=== PATIENT | female | born 1950 | race Caucasian/White ===

== ENCOUNTER → 2016-07-21 | Outpatient (CLI) | payer MEDICARE | LOC: M WUC 13:56 | PROVIDERS: ATTEND Internal Medicine Endocrinology, Diabetes & Metabolism | DX: E55.9 Vitamin D deficiency, unspecified (principal); E89.0 Postprocedural hypothyroidism ==

== ENCOUNTER → 2016-09-26 | Outpatient (CLI) | payer MEDICARE ==
--- NOTE | 2016-09-26 16:29 | REP ---
Chest x-ray: Two views. History: There is edema and swelling of the feet. . Comparison study: July 12 2012 . Findings: The lungs are well inflated and free of infiltrate. The pleural angles are sharp. The heart size is normal. Pulmonary vasculature is not increased. No significant bony abnormality is seen. Impression: Negative chest x-ray. Signed by Desmond Mata MD 09/26/2016 04:22 P
[2016-09-26 20:08] LABS: ALBUMIN 2.2 GM/DL (3.2-5.2); ALKALINE PHOSPHATASE 134 U/L (45-117); ALT/SGPT 22 U/L (12-78); ANION GAP 7 MEQ/L (8-16); AST/SGOT 20 U/L (15-37); BILIRUBIN,TOTAL 0.3 MG/DL (0.2-1.0); BLOOD UREA NITROGEN 12 MG/DL (7-18); CALCIUM LEVEL 8.3 MG/DL (8.8-10.2); CARBON DIOXIDE LEVEL 31 MEQ/L (21-32); CHLORIDE LEVEL 104 MEQ/L (98-107); CREATININE FOR GFR 0.67 MG/DL (0.55-1.02); GLOMERULAR FILTRATION RATE > 60.0 (>45); GLUCOSE, FASTING 94 MG/DL (80-110); POTASSIUM SERUM 3.5 MEQ/L (3.5-5.1); SODIUM LEVEL 142 MEQ/L (136-145); TOTAL PROTEIN 6.6 GM/DL (6.4-8.2)
[2016-09-26 20:09] LABS: BASO % 0.3 % (0.0-1.0); EOS # 0.1 K/mm3 (0.0-0.50); EOS % 0.6 % (0.0-3.0); LARGE UNSTAINED CELL # 0.2 K/mm3 (0.0-0.4); LARGE UNSTAINED CELL % 1.2 % (0.0-4.0); LYMPH # 1.9 K/mm3 (1.5-4.5); LYMPH % 13.6 % (24.0-44.0); MEAN CORPUSCULAR HEMOGLOBIN 29.7 pg (27.0-33.0); MEAN CORPUSCULAR HGB CONC 30.9 g/dl (32.0-36.5); MEAN CORPUSCULAR VOLUME 96.2 fl (80.0-96.0); MONO # 1.1 K/mm3 (0.0-0.8); MONO % 8.6 % (0.0-5.0); NEUTROPHILS # 9.5 K/mm3 (1.8-7.7); NEUTROPHILS % 75.7 % (36.0-66.0); PLATELET COUNT, AUTOMATED 794 k/mm3 (150-450); RED CELL DISTRIBUTION WIDTH 13.9 % (11.5-14.5); WHITE BLOOD COUNT 12.6 K/mm3 (4.0-10.0)
== END ==
LOC: M WUC 16:00
PROVIDERS: ATTEND Physician Assistant
DX: R60.0 Localized edema (principal)

== ENCOUNTER → 2016-10-22 | Outpatient (CLI) | payer MEDICARE | LOC: M LAB 10-21 18:45 | PROVIDERS: ATTEND Internal Medicine Gastroenterology | DX: K51.30 Ulcerative (chronic) rectosigmoiditis without complications (principal) ==

== ENCOUNTER → 2016-12-31 | Outpatient (CLI) | payer MEDICARE ==
[2016-12-31 17:56] LABS: BASO # 0.1 10^3/uL (0.0-0.2); BASO % 0.7 % (0.0-1.0); EOS # 0.1 10^3/uL (0.0-0.50); IMMATURE GRANULOCYTE % 0.4 % (0-0); LYMPH # 2.7 10^3/uL (1.5-4.5); LYMPH % 30.4 % (24.0-44.0); MEAN CORPUSCULAR HGB CONC 31.6 g/dl (32.0-36.5); MEAN CORPUSCULAR VOLUME 104.6 fl (80.0-96.0); MONO # 0.9 10^3/uL (0.0-0.8); MONO % 10.2 % (0.0-5.0); NEUTROPHILS # 5.2 10^3/uL (1.8-7.7); NEUTROPHILS % 57.3 % (36.0-66.0); PLATELET COUNT, AUTOMATED 406 10^3/uL (150-450); RED CELL DISTRIBUTION WIDTH 13.8 % (11.5-14.5)
[2016-12-31 18:12] LABS: ALBUMIN 3.4 GM/DL (3.2-5.2); ALBUMIN/GLOBULIN RATIO 0.92 (1.00-1.93); BILIRUBIN,TOTAL 0.2 MG/DL (0.2-1.0); CALCIUM LEVEL 9.1 MG/DL (8.8-10.2); CREATININE FOR GFR 1.2 MG/DL (0.55-1.02); GLOMERULAR FILTRATION RATE 47.7 (>45); POTASSIUM SERUM 3.8 MEQ/L (3.5-5.1); TOTAL PROTEIN 7.1 GM/DL (6.4-8.2)
== END ==
LOC: M WUC 11:37
PROVIDERS: ATTEND Internal Medicine Gastroenterology
DX: K51.30 Ulcerative (chronic) rectosigmoiditis without complications (principal)

== ENCOUNTER → 2017-01-05 | Outpatient (CLI) | payer MEDICARE ==
[2017-01-05 16:51] LABS: BASO # 0.1 10^3/uL (0.0-0.2); BASO % 0.9 % (0.0-1.0); EOS # 0.1 10^3/uL (0.0-0.50); EOS % 1.5 % (0.0-3.0); IMMATURE GRANULOCYTE % 0.2 % (0-0); LYMPH # 2.7 10^3/uL (1.5-4.5); LYMPH % 32.6 % (24.0-44.0); MEAN CORPUSCULAR HEMOGLOBIN 32.6 pg (27.0-33.0); MEAN CORPUSCULAR HGB CONC 31.7 g/dl (32.0-36.5); MEAN CORPUSCULAR VOLUME 102.9 fl (80.0-96.0); MONO % 11.6 % (0.0-5.0); NEUTROPHILS # 4.4 10^3/uL (1.8-7.7); NEUTROPHILS % 53.2 % (36.0-66.0); PLATELET COUNT, AUTOMATED 396 10^3/uL (150-450); RED CELL DISTRIBUTION WIDTH 13.2 % (11.5-14.5); WHITE BLOOD COUNT 8.2 10^3/uL (4.0-10.0)
[2017-01-05 17:58] LABS: PERCENT SATURATION 10.8 % (13.2-45.0)
[2017-01-05 18:05] LABS: FOLATE 20.7 NG/ML
== END ==
LOC: M WUC 11:03
PROVIDERS: ATTEND Internal Medicine Gastroenterology
DX: D64.9 Anemia, unspecified (principal)

== ENCOUNTER → 2017-07-31 | Outpatient (CLI) | payer MEDICARE ==
[2017-07-31 20:04] LABS: CALCIUM LEVEL 9.4 MG/DL (8.8-10.2)
[2017-07-31 20:04] LABS: THYROID STIMULATING HORMONE 0.258 uIU/ML (0.358-3.740)
[2017-08-01 10:57] LABS: TOTAL 25(OH) VITAMIN D 40.9 NG/ML (30.0-100.0)
== END ==
LOC: M WUC 16:59
DX: E89.0 Postprocedural hypothyroidism (principal); E55.9 Vitamin D deficiency, unspecified
CPT/HCPCS: 82310

== ENCOUNTER → 2017-11-23 | Outpatient (CLI) | payer MEDICARE ==
[2017-11-23 18:29] LABS: ALBUMIN 3.5 GM/DL (3.2-5.2); ALBUMIN/GLOBULIN RATIO 0.81 (1.00-1.93); ALKALINE PHOSPHATASE 338 U/L (45-117); ALT/SGPT 35 U/L (12-78); ANION GAP 8 MEQ/L (8-16); AST/SGOT 40 U/L (7-37); BILIRUBIN,TOTAL 0.3 MG/DL (0.2-1.0); BLOOD UREA NITROGEN 15 MG/DL (7-18); C REACTIVE PROTEIN QUANTITATIV 2.07 MG/DL (0.00-0.30); CALCIUM LEVEL 10.2 MG/DL (8.8-10.2); CARBON DIOXIDE LEVEL 31 MEQ/L (21-32); CHLORIDE LEVEL 104 MEQ/L (98-107); CREATININE FOR GFR 0.75 MG/DL (0.55-1.30); GLOMERULAR FILTRATION RATE > 60.0 (>45); GLUCOSE, FASTING 83 MG/DL (70-100); IRON (FE) 48 UG/DL (50-170); PERCENT SATURATION 15.3 % (13.2-45.0); POTASSIUM SERUM 3.9 MEQ/L (3.5-5.1); SODIUM LEVEL 143 MEQ/L (136-145); TOTAL IRON BINDING CAPACITY 314 UG/DL (250-450); TOTAL PROTEIN 7.8 GM/DL (6.4-8.2)
[2017-11-23 20:17] LABS: BASO # 0.1 10^3/uL (0.0-0.2); BASO % 0.9 % (0.0-1.0); EOS # 0.3 10^3/uL (0.0-0.50); EOS % 3.6 % (0.0-3.0); HEMATOCRIT 38.5 % (36.0-47.0); HEMOGLOBIN 12.2 g/dl (12.0-15.5); IMMATURE GRANULOCYTE % 0.4 % (0-3.0); LYMPH # 2.5 10^3/uL (1.5-4.5); LYMPH % 32.7 % (24.0-44.0); MEAN CORPUSCULAR HEMOGLOBIN 31.6 pg (27.0-33.0); MEAN CORPUSCULAR HGB CONC 31.7 g/dl (32.0-36.5); MEAN CORPUSCULAR VOLUME 99.7 fl (80.0-96.0); MONO # 0.8 10^3/uL (0.0-0.8); MONO % 10.3 % (0.0-5.0); NEUTROPHILS % 52.1 % (36.0-66.0); PLATELET COUNT, AUTOMATED 310 10^3/uL (150-450); RED BLOOD COUNT 3.86 10^6/uL (4.00-5.40); RED CELL DISTRIBUTION WIDTH 13.2 % (11.5-14.5); WHITE BLOOD COUNT 7.6 10^3/uL (4.0-10.0)
== END ==
LOC: M WUC 13:29
DX: K51.30 Ulcerative (chronic) rectosigmoiditis without complications (principal)
CPT/HCPCS: 83550

== ENCOUNTER → 2018-08-14 | Outpatient (CLI) | payer MEDICARE ==
[2018-08-14 20:23] LABS: THYROID STIMULATING HORMONE 0.288 uIU/ML (0.358-3.740)
[2018-08-14 20:25] LABS: TOTAL 25(OH) VITAMIN D 34.4 NG/ML (30.0-100.0)
== END ==
LOC: M WUC 15:44
PROVIDERS: ATTEND Internal Medicine Endocrinology, Diabetes & Metabolism
DX: E89.0 Postprocedural hypothyroidism (principal); E55.9 Vitamin D deficiency, unspecified

== ENCOUNTER → 2018-10-17 | Outpatient (CLI) | payer MEDICARE ==
[2018-10-17 17:09] LABS: FREE T4 1.01 NG/DL (0.76-1.46); THYROID STIMULATING HORMONE 0.39 uIU/ML (0.358-3.740)
== END ==
LOC: M WUC 11:12
PROVIDERS: ATTEND Nurse Practitioner Family
DX: E89.0 Postprocedural hypothyroidism (principal)

== ENCOUNTER → 2018-12-27 | Outpatient (CLI) | payer MEDICARE ==
[2018-12-27 13:07] LABS: CREATININE FOR GFR 1.08 MG/DL (0.55-1.30); GLOMERULAR FILTRATION RATE 53.5 (>45)
== END ==
LOC: M WUC 11:27
PROVIDERS: ATTEND Internal Medicine Gastroenterology
DX: K51.30 Ulcerative (chronic) rectosigmoiditis without complications (principal)

== ENCOUNTER → 2019-08-26 | Outpatient (CLI) | payer MEDICARE ==
[2019-08-26 18:08] LABS: BLOOD UREA NITROGEN 15 MG/DL (7-18); CALCIUM LEVEL 9.2 MG/DL (8.8-10.2); CARBON DIOXIDE LEVEL 29 MEQ/L (21-32); CHLORIDE LEVEL 103 MEQ/L (98-107); CREATININE FOR GFR 0.74 MG/DL (0.55-1.30); GLOMERULAR FILTRATION RATE > 60.0 (>39); GLUCOSE, FASTING 67 MG/DL (70-100); SODIUM LEVEL 138 MEQ/L (136-145); THYROID STIMULATING HORMONE 0.333 uIU/ML (0.358-3.740); TOTAL 25(OH) VITAMIN D 43.1 NG/ML (30.0-100.0)
== END ==
LOC: M WUC 11:37
PROVIDERS: ATTEND Nurse Practitioner Family
DX: E89.0 Postprocedural hypothyroidism (principal); E55.9 Vitamin D deficiency, unspecified; M85.89 Other specified disorders of bone density and structure, multiple sites

== ENCOUNTER → 2020-07-20 | Outpatient (CLI) | payer MEDICARE ==
[2020-07-20 16:41] LABS: ALBUMIN 3.3 GM/DL (3.2-5.2); ALT/SGPT 62 U/L (12-78); BILIRUBIN,DIRECT 0.2 MG/DL (0.0-0.2); BILIRUBIN,TOTAL 0.4 MG/DL (0.2-1.0); IRON (FE) 46 UG/DL (50-170); PERCENT SATURATION 14.1 % (13.2-45.0); TOTAL IRON BINDING CAPACITY 327 UG/DL (250-450); TOTAL PROTEIN 7.3 GM/DL (6.4-8.2)
[2020-07-20 16:49] LABS: HEPATITIS B SURFACE ANTIGEN NEGATIVE (NEGATIVE)
[2020-07-20 17:16] LABS: HEPATITIS B CORE ANTIBODY IGM NEGATIVE (NEGATIVE)
[2020-07-20 17:19] LABS: HEPATITIS A ANTIBODY IGM NEGATIVE (NEGATIVE)
== END ==
LOC: M WUC 11:56
PROVIDERS: ATTEND Internal Medicine Gastroenterology
DX: K51.30 Ulcerative (chronic) rectosigmoiditis without complications (principal)

== ENCOUNTER → 2020-08-07 | Outpatient (CLI) | payer MEDICARE ==
[2020-08-07 20:49] LABS: THYROID STIMULATING HORMONE 0.184 uIU/ML (0.358-3.740)
== END ==
LOC: M WUC 14:28
PROVIDERS: ATTEND Internal Medicine Endocrinology, Diabetes & Metabolism
DX: E89.0 Postprocedural hypothyroidism (principal); M85.89 Other specified disorders of bone density and structure, multiple sites

== ENCOUNTER → 2020-10-01 | Outpatient (CLI) | payer MEDICARE ==
[~2020-10-01] MED LIST: D31000TA2 PO; MESA1.2T PO; OYST1TAB PO; SIMV20TA22 PO; SYNT88TA2 PO
== END ==
LOC: M LABSMTC 10:51
PROVIDERS: ATTEND Anesthesiology
DX: Z01.818 Encounter for other preprocedural examination (principal); Z11.52 Encounter for screening for COVID-19

== ENCOUNTER 2020-10-06 08:46 | Day surgery (SDC) | payer MEDICARE ==
[~2020-10-06] VITALS: Ht 165.1 cm; Wt 65.2 kg
[~2020-10-06 08:46] MED LIST changes: +NS 1,000 ML IV ONE
[2020-10-06] MEDS ORDERED: propofoL 200 MG/20 ML VIAL As Ordered ONE ×2 (09:54→10:14)
[2020-10-06] MEDS ORDERED: LIDOCAINE 2% 100MG/5ML SDV (FOR ANES.) As Ordered ONE (09:54)
--- NOTE | 2020-10-06 10:44 | ROOR ---
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 Procedure: Pre-Anesthesia Assessment: - The heart rate, respiratory rate, oxygen saturations, blood pressure, adequacy of pulmonary ventilation, and response to care were monitored throughout the procedure. The Colonoscope was introduced through the anus and advanced to 10 cm into the ileum. The colonoscopy was performed without difficulty. The patient tolerated the procedure well. The quality of the bowel preparation was good. Findings: The perianal and digital rectal examinations were normal. The terminal ileum appeared normal. Three sessile polyps were found in the ascending colon and cecum. The polyps were 4 to 6 mm in size. These polyps were removed with a cold snare. Resection and retrieval were complete. Inflammation characterized by erythema and loss of vascularity was found in a continuous and circumferential pattern from the rectum to the ascending colon. This was mild in severity. Biopsies were taken with a cold forceps for histology. Scattered pseudopolyps were found in the entire colon. This was biopsied with a cold forceps for histology. Multiple small-mouthed diverticula were found in the sigmoid colon. Internal hemorrhoids were found during retroflexion. The hemorrhoids were small. The exam was otherwise without abnormality. Impression: - The examined portion of the ileum was normal. - Three 4 to 6 mm polyps (or pseudopolyps) in the ascending colon and in the cecum, removed with a cold snare. Resected and retrieved. - Mild Ulcerative pancolitis with numerous small and medium sized scattered pseudopolyps throughout the entire colon. Biopsied. - Diverticulosis in the sigmoid colon. - Internal hemorrhoids. - The examination was otherwise normal. Recommendation: - Continue present medications. - Telephone endoscopist for pathology results in 2 weeks. - Repeat colonoscopy in 1 year for surveillance. (numerous pseudopolyps/inflammatory polyps). Procedure Code(s): --- Professional --- 44566, Colonoscopy, flexible; with removal of tumor(s), polyp(s), or other lesion(s) by snare technique [id number], 59, Colonoscopy, flexible; with biopsy, single or multiple Diagnosis Code(s): --- Professional --- K57.30, Diverticulosis of large intestine without perforation or abscess without bleeding K51.40, Inflammatory polyps of colon without complications K51.00, Ulcerative (chronic) pancolitis without complications K63.5, Polyp of colon K64.8, Other hemorrhoids K51.50, Left sided colitis without complications Z86.010, Personal history of colonic polyps CPT copyright 2019 [employer]. All rights reserved. The codes documented in this report are preliminary and upon certified medical coder review may be revised to meet current compliance requirements. Anjel Tamayo MD Anjel Tamayo MD 10/06/2020 10:44:15 AM Electronically signed by Anjel Tamayo MD Number of Addenda: 0 Note Initiated On: 10/06/2020 10:04 AM Estimated Blood Loss: Estimated blood loss: none.
[2020-10-06 10:55] VITALS: BP 155/71
== END 2020-10-06 11:05 | disposition home or self-care (01) ==
LOC: M OPP 08:46
PROVIDERS: ATTEND Internal Medicine Gastroenterology
DX: Z12.11 Encounter for screening for malignant neoplasm of colon (principal); Z86.010 Personal history of colon polyps; K64.8 Other hemorrhoids; K57.30 Diverticulosis of large intestine without perforation or abscess without bleeding; K51.40 Inflammatory polyps of colon without complications; K51.00 Ulcerative (chronic) pancolitis without complications; K51.50 Left sided colitis without complications; Z79.899 Other long term (current) drug therapy

== ENCOUNTER → 2020-10-20 | Outpatient (CLI) | payer MEDICARE ==
[~2020-10-20] MED LIST changes: -NS 1,000 ML IV ONE
== END ==
LOC: M WUC 15:04
PROVIDERS: ATTEND Internal Medicine Endocrinology, Diabetes & Metabolism
DX: E89.0 Postprocedural hypothyroidism (principal)

== ENCOUNTER → 2021-07-23 | Outpatient (CLI) | payer MEDICARE ==
[~2021-07-23] MED LIST changes: -D31000TA2 PO; +VITA100093 PO
[2021-07-23 15:18] LABS: THYROID STIMULATING HORMONE 1.08 uIU/ML (0.358-3.740)
[2021-07-23 15:20] LABS: TOTAL 25(OH) VITAMIN D 49.4 NG/ML (30.0-100.0)
== END ==
LOC: M WUC 13:25
PROVIDERS: ATTEND Internal Medicine Endocrinology, Diabetes & Metabolism
DX: E89.0 Postprocedural hypothyroidism (principal); E55.9 Vitamin D deficiency, unspecified; Z79.899 Other long term (current) drug therapy

== ENCOUNTER → 2021-07-23 | Outpatient (CLI) | payer MEDICARE | LOC: M WHC 12:15 | PROVIDERS: ATTEND Internal Medicine Endocrinology, Diabetes & Metabolism | DX: M85.851 Other specified disorders of bone density and structure, right thigh (principal); M85.852 Other specified disorders of bone density and structure, left thigh; Z79.899 Other long term (current) drug therapy ==

== ENCOUNTER → 2021-11-11 | Outpatient (CLI) | payer MEDICARE | LOC: M LABSMTC 10:41 | PROVIDERS: ATTEND Anesthesiology | DX: Z01.818 Encounter for other preprocedural examination (principal); Z11.52 Encounter for screening for COVID-19 ==

== ENCOUNTER 2021-11-16 08:28 | Day surgery (SDC) | payer MEDICARE ==
[~2021-11-16] VITALS: Ht 162.6 cm; Wt 64.0 kg
[~2021-11-16 08:28] MED LIST changes: +NS 1,000 ML IV ONE
[2021-11-16] MEDS ORDERED: LIDOCAINE 2% 100MG/5ML SDV (FOR ANES.) As Ordered ONE (09:24)
[2021-11-16] MEDS ORDERED: propofoL 200 MG/20 ML VIAL As Ordered ONE ×2 (09:24→10:45)
[2021-11-16 11:26] VITALS: BP 138/88
== END 2021-11-16 11:28 | disposition home or self-care (01) ==
LOC: M OPP 08:28
PROVIDERS: ATTEND Internal Medicine Gastroenterology
DX: K51.00 Ulcerative (chronic) pancolitis without complications (principal); K51.40 Inflammatory polyps of colon without complications; D12.6 Benign neoplasm of colon, unspecified; E03.9 Hypothyroidism, unspecified; Z79.02 Long term (current) use of antithrombotics/antiplatelets; Z79.1 Long term (current) use of non-steroidal anti-inflammatories (NSAID); Z79.899 Other long term (current) drug therapy; Z87.891 Personal history of nicotine dependence; Z86.39 Personal history of other endocrine, nutritional and metabolic disease

== ENCOUNTER → 2023-08-28 | Outpatient (REF) | payer MEDICARE ==
[~2023-08-28] MED LIST changes: +ATOR1TAB21 PO; -NS 1,000 ML IV ONE; +SYNT75TA PO
== END ==
LOC: M LAB REF 17:23
PROVIDERS: ATTEND Internal Medicine
DX: R74.8 Abnormal levels of other serum enzymes (principal)

== ENCOUNTER 2023-08-31 08:02 | Day surgery (SDC) | payer MEDICARE ==
[~2023-08-31] VITALS: Ht 162.6 cm; Wt 69.9 kg
[~2023-08-31 08:02] MED LIST changes: +PHENYLEPHRINE 10% OPHTH SOL 5ML OS PRN
[2023-08-31] MEDS: OFLOXACIN 0.3 % (OCUFLOX) OPTH SOL 5ML OS ONE (08:30)
[2023-08-31] MEDS: LIDOCAINE 3.5 % 1ML OPHTH TOPICAL GEL OU ONE (08:30)
[2023-08-31] MEDS: PHENYLEPHRINE 2.5% OPHTH SOL 2ML OS SCH (08:41)
[2023-08-31] MEDS: TROPICAMIDE 1% OPHTH SOLN 15ML OS SCH (08:41)
[2023-08-31] MEDS: ATROPINE SULFATE 1% OPHTH SOLN 2ML BTL OS SCH (08:41)
[2023-08-31] MEDS ORDERED: fentaNYL 100 MCG/2 ML INJECTION As Ordered ONE (08:43)
[2023-08-31] MEDS ORDERED: MIDAZOLAM INJ 2MG/2ML VIAL As Ordered ONE (08:44)
[2023-08-31] MEDS: BSS IRRIG/VANCO(10MG)/TOBRA(5MG)/EPINEPH(1:1000-0.5CC)500ML BAG-ORONLY As Ordered ONE (09:09)
[2023-08-31] MEDS: LIDOCAINE 1% SDV 5ML VIAL As Ordered ONE (09:09)
[2023-08-31] MEDS: CEFUROXIME 1MG/0.1ML INTRACAMERAL INJ As Ordered ONE (09:11)
[2023-08-31 09:38] VITALS: BP 162/71; TEMP 96.8; O2SAT 99
== END 2023-08-31 09:40 | disposition home or self-care (01) ==
LOC: M SDC 08:02
PROVIDERS: ATTEND Ophthalmology
DX: H25.12 Age-related nuclear cataract, left eye (principal); Z79.899 Other long term (current) drug therapy; F17.290 Nicotine dependence, other tobacco product, uncomplicated
CPT/HCPCS: 66984; J0697; J2250; J3010; V2632

== ENCOUNTER 2023-11-02 08:23 | Day surgery (SDC) | payer MEDICARE ==
[~2023-11-02] VITALS: Ht 162.6 cm; Wt 68.9 kg
[~2023-11-02 08:23] MED LIST changes: +PHENYLEPHRINE 10% OPHTH SOL 5ML OD PRN; -PHENYLEPHRINE 10% OPHTH SOL 5ML OS PRN
[2023-11-02] MEDS: TROPICAMIDE 1% OPHTH SOLN 15ML OD SCH (09:47)
[2023-11-02] MEDS: PHENYLEPHRINE 2.5% OPHTH SOL 2ML OD SCH (09:47)
[2023-11-02] MEDS: LIDOCAINE 3.5 % 1ML OPHTH TOPICAL GEL OU ONE (09:47)
[2023-11-02] MEDS: ATROPINE SULFATE 1% OPHTH SOLN 2ML BTL OD SCH (09:47)
[2023-11-02] MEDS: OFLOXACIN 0.3 % (OCUFLOX) OPTH SOL 5ML OD ONE (09:47)
[2023-11-02] MEDS ORDERED: fentaNYL 100 MCG/2 ML INJECTION As Ordered ONE (10:06)
[2023-11-02] MEDS ORDERED: MIDAZOLAM INJ 2MG/2ML VIAL As Ordered ONE (10:06)
[2023-11-02] MEDS: LIDOCAINE 1% SDV 5ML VIAL As Ordered ONE (11:00)
[2023-11-02] MEDS: CEFUROXIME 1MG/0.1ML INTRACAMERAL INJ As Ordered ONE (11:01)
[2023-11-02] MEDS: BSS IRRIG/VANCO(10MG)/TOBRA(5MG)/EPINEPH(1:1000-0.5CC)500ML BAG-ORONLY As Ordered ONE (11:01)
[2023-11-02 11:13] VITALS: BP 155/71; TEMP 97.3; O2SAT 99
== END 2023-11-02 11:25 | disposition home or self-care (01) ==
LOC: M SDC 08:23
PROVIDERS: ATTEND Ophthalmology
DX: H25.11 Age-related nuclear cataract, right eye (principal); E89.0 Postprocedural hypothyroidism; E78.00 Pure hypercholesterolemia, unspecified; K76.0 Fatty (change of) liver, not elsewhere classified; Z79.899 Other long term (current) drug therapy; Z79.890 Hormone replacement therapy; F17.290 Nicotine dependence, other tobacco product, uncomplicated; K51.90 Ulcerative colitis, unspecified, without complications

== ENCOUNTER → 2023-11-07 | Outpatient (CLI) | payer MEDICARE ==
[~2023-11-07] MED LIST changes: -PHENYLEPHRINE 10% OPHTH SOL 5ML OD PRN
== END ==
LOC: M RAD 16:22
PROVIDERS: ATTEND Internal Medicine
DX: Z87.891 Personal history of nicotine dependence (principal)

== ENCOUNTER → 2023-12-19 | Outpatient (CLI) | payer MEDICARE | LOC: M WHC 08:54 | PROVIDERS: ATTEND Internal Medicine | DX: Z12.31 Encounter for screening mammogram for malignant neoplasm of breast (principal); M81.0 Age-related osteoporosis without current pathological fracture ==

== ENCOUNTER → 2024-10-02 | Outpatient (CLI) | payer MEDICARE | LOC: M PLAIMG 10:32 | PROVIDERS: ATTEND Nurse Practitioner Family | DX: R91.1 Solitary pulmonary nodule (principal) ==

== ENCOUNTER 2024-10-17 07:44 | Day surgery (SDC) | payer MEDICARE ==
[~2024-10-17] VITALS: Ht 162.6 cm; Wt 67.1 kg
[2024-10-17] MEDS ORDERED: LIDOCAINE 2% INJ 100 MG/5 ML SYRINGE As Ordered ONE (09:44)
[2024-10-17] MEDS ORDERED: GLYCOPYRROLATE INJ 0.2 MG/ML 2 ML VIAL As Ordered ONE (09:51)
[2024-10-17 10:07] VITALS: TEMP 97.4
[2024-10-17 10:25] VITALS: BP 180/77; O2SAT 98
== END 2024-10-17 10:35 | disposition home or self-care (01) ==
LOC: M OPP 07:44
PROVIDERS: ATTEND Internal Medicine Gastroenterology
DX: D12.0 Benign neoplasm of cecum (principal); K57.30 Diverticulosis of large intestine without perforation or abscess without bleeding; K64.8 Other hemorrhoids; K51.00 Ulcerative (chronic) pancolitis without complications; Z79.899 Other long term (current) drug therapy
CPT/HCPCS: 45380; 88305; J1596

== ENCOUNTER 2024-10-30 19:13 | Emergency (ER) | payer MEDICARE ==
[~2024-10-30] VITALS: Ht 162.6 cm; Wt 67.0 kg
[2024-10-30 20:03] LABS: BASO # 0.1 10^3/uL (0.0-0.2); BASO % 0.6 % (0.0-1.0); EOS # 1.0 10^3/uL (0.0-0.5); EOS % 12.6 % (0.0-3.0); LYMPH # 2.1 10^3/uL (1.5-5.0); LYMPH % 25.8 % (24.0-44.0); MONO # 0.7 10^3/uL (0.0-0.8); MONO % 9.0 % (2.0-8.0); NEUTROPHILS # 4.1 10^3/uL (1.5-8.5); NEUTROPHILS % 51.6 % (36.0-66.0); PLATELET COUNT, AUTOMATED 297 10^3/uL (150-450)
[2024-10-30 20:15] LABS: INR 1.06
[2024-10-30 20:19] LABS: CK-MB VALUE MASS 2.6 NG/ML (<3.6)
[2024-10-30 20:22] LABS: ALT/SGPT 34.0 U/L (7.0-40); AST/SGOT 55.0 U/L (<34)
[2024-10-30 20:23] LABS: CPK CREATINE PHOSPHOKINASE 82.0 U/L (34-145); MB/CK RELATIVE INDEX 3.17 (< OR =4)
[2024-10-30] MEDS: ASPIRIN 81 MG CHEWABLE TABLET PO ONE (20:47)
[2024-10-30 21:31] LABS: CK-MB VALUE MASS 2.3 NG/ML (<3.6)
[2024-10-30 21:32] LABS: CPK CREATINE PHOSPHOKINASE 71.0 U/L (34-145); MB/CK RELATIVE INDEX 3.23 (< OR =4)
[2024-10-30] MEDS ORDERED: NITROGLYCERIN 0.4 MG SUBL TABLET SL PRN (22:25)
[2024-10-30] MEDS: HEPARIN SOD 5000 UNITS/ML 1 ML VIAL/SYRINGE IV ONE (22:48)
[2024-10-30] MEDS: HEPARIN DRIP 25,000 UNITS in IV 1 EA IV SCH (22:49)
[2024-10-31 01:15] VITALS: BP 165/75; O2SAT 96
[2024-10-31 01:18] VITALS: TEMP 96.9
== END 2024-10-31 01:19 | disposition short-term general hospital (02) ==
LOC: M ED 19:13
DX: I24.9 Acute ischemic heart disease, unspecified (principal); E03.9 Hypothyroidism, unspecified; Z87.891 Personal history of nicotine dependence; Z79.899 Other long term (current) drug therapy

== ENCOUNTER 2024-11-03 11:22 | Inpatient (IN) | payer MEDICARE ==
[~2024-11-03] VITALS: Ht 162.6 cm; Wt 66.3 kg
[2024-11-03] MEDS ORDERED: ATOR40TA75 (11:30)
[2024-11-03] MEDS ORDERED: METO1TAB7 (11:30)
[2024-11-03] MEDS ORDERED: NITR0.4S14 (11:30)
[2024-11-03] MEDS ORDERED: LOSA25TA13 (11:30)
[2024-11-03 12:09] LABS: BASO # 0.1 10^3/uL (0.0-0.2); BASO % 0.6 % (0.0-1.0); EOS # 0.4 10^3/uL (0.0-0.5); EOS % 4.0 % (0.0-3.0); LYMPH # 1.5 10^3/uL (1.5-5.0); LYMPH % 16.0 % (24.0-44.0); MONO # 1.0 10^3/uL (0.0-0.8); MONO % 10.7 % (2.0-8.0); NEUTROPHILS # 6.4 10^3/uL (1.5-8.5); NEUTROPHILS % 68.4 % (36.0-66.0); PLATELET COUNT, AUTOMATED 293 10^3/uL (150-450)
[2024-11-03 12:23] LABS: INR 0.99
[2024-11-03] MEDS: ASPIRIN 81 MG CHEWABLE TABLET PO ONE (12:27)
[2024-11-03 12:44] LABS: CK-MB VALUE MASS 2.7 NG/ML (<3.6)
[2024-11-03 12:45] LABS: ALT/SGPT 31 U/L (7.0-40); AST/SGOT 40 U/L (<34); CALCIUM LEVEL 8.9 MG/DL (8.3-10.6); CARBON DIOXIDE LEVEL 30 MMOL/L (20-31); CHLORIDE LEVEL 104 MMOL/L (98-107); CPK CREATINE PHOSPHOKINASE 80 U/L (34-145); CREATININE FOR GFR 0.64 MG/DL (0.55-1.30); GLOMERULAR FILTRATION RATE > 90.0 (>39); MB/CK RELATIVE INDEX 3.37 (< OR =4); POTASSIUM SERUM 3.6 MMOL/L (3.5-5.1); SODIUM LEVEL 142 MMOL/L (136-145)
[2024-11-03] MEDS ORDERED: ISOVUE-370 76% 100 ML VIAL As Ordered ONE (13:12)
[2024-11-03 13:35] LABS: CK-MB VALUE MASS 2.5 NG/ML (<3.6)
[2024-11-03 13:44] LABS: CPK CREATINE PHOSPHOKINASE 72.0 U/L (34-145); MB/CK RELATIVE INDEX 3.47 (< OR =4)
[2024-11-03] MEDS: NITROGLYCERIN 0.4 MG SUBL TABLET SL PRN (14:32)
[2024-11-03] MEDS ORDERED: D-3-50003 PO (18:24)
[2024-11-03] MEDS ORDERED: LOSA25TA13 PO (18:24)
[2024-11-03] MEDS ORDERED: NITR0.4S14 SL (18:24)
[2024-11-03] MEDS ORDERED: ASPI81TA26 PO (18:24)
[2024-11-03] MEDS ORDERED: ACET-897 PO (18:24)
[2024-11-03] MEDS ORDERED: LEVO100T5 PO (18:24)
[2024-11-03] MEDS ORDERED: EZET10TA21 PO (18:24)
[2024-11-03] MEDS ORDERED: TOPR25TA PO (18:24)
[2024-11-03] MEDS ORDERED: CALC600T60 PO (18:24)
[2024-11-03] MEDS ORDERED: ATOR40TA75 PO (18:24)
[2024-11-03] MEDS ORDERED: LIAL1.2T PO (18:24)
[2024-11-03] MEDS ORDERED: HOME MED LIST COMPLETE! XX SCH (18:25)
[2024-11-03] MEDS: ISOSORBIDE MONONITRATE 60 MG XR TAB PO SCH (18:31)
[2024-11-03] MEDS ORDERED: NITROGLYCERIN 0.4 MG SUBL TABLET SL PRN (18:45)
[2024-11-03 18:51] LABS: MAGNESIUM LEVEL 1.7 MG/DL (1.8-2.4)
[2024-11-03] MEDS: ATORVASTATIN 20 MG TAB PO SCH (21:33)
[2024-11-04 08:22] LABS: PLATELET COUNT, AUTOMATED 287 10^3/uL (150-450)
[2024-11-04 08:44] LABS: CALCIUM LEVEL 8.5 MG/DL (8.3-10.6); CARBON DIOXIDE LEVEL 28 MMOL/L (20-31); CHLORIDE LEVEL 105 MMOL/L (98-107); CHOLESTEROL LEVEL 148 MG/DL (<200); CHOLESTEROL RISK RATIO 2.60 (<5); CREATININE FOR GFR 0.60 MG/DL (0.55-1.30); GLOMERULAR FILTRATION RATE > 90.0 (>39); LDL CHOLESTEROL 74.8 MG/DL (<100); MAGNESIUM LEVEL 1.6 MG/DL (1.8-2.4); NON-HDL-C 91.2 MG/DL; POTASSIUM SERUM 3.8 MMOL/L (3.5-5.1); SODIUM LEVEL 143 MMOL/L (136-145); TRIGLYCERIDES LEVEL 82 MG/DL (<150)
[2024-11-04 08:45] VITALS: BP 157/70; TEMP 98.4; O2SAT 94
[2024-11-04] MEDS: ENOXAPARIN 40 MG/0.4 ML SYRINGE (J1650 PER 10MG) SC SCH (08:50)
[2024-11-04] MEDS: LOSARTAN 25 MG TAB PO SCH (08:51)
[2024-11-04] MEDS: ASPIRIN 81 MG ENTERIC TABLET PO SCH (08:51)
[2024-11-04] MEDS: METOPROLOL SUCC *XL* 12.5 MG PER 1/2 TAB PO SCH (08:52)
[2024-11-04] MEDS: ACETAMINOPHEN 500 MG TAB PO PRN (09:04)
[2024-11-04] MEDS: LEVOTHYROXINE 100 MCG TABLET (0.1 MG) PO SCH (09:04)
[2024-11-04] MEDS: EZETIMIBE 10 MG TABLET PO SCH (09:05)
[2024-11-04 15:30] VITALS: BP 122/57; TEMP 97.2; O2SAT 96
[2024-11-04 16:00] VITALS: BP 116/56; TEMP 97.1; O2SAT 95
[2024-11-04 20:00] VITALS: BP 110/54; TEMP 97.7; O2SAT 93
[2024-11-04] MEDS: MAGNESIUM OXIDE 400 MG TAB PO SCH (20:01)
[2024-11-04 23:29] VITALS: BP 107/52; TEMP 97.7; O2SAT 96
[2024-11-05 03:30] VITALS: BP 114/57; TEMP 98.4; O2SAT 94
[2024-11-05] MEDS: ACETAMINOPHEN 325 MG TAB PO ONE (03:44)
[2024-11-05 05:11] LABS: PLATELET COUNT, AUTOMATED 266 10^3/uL (150-450)
[2024-11-05 05:45] LABS: CALCIUM LEVEL 7.9 MG/DL (8.3-10.6); CARBON DIOXIDE LEVEL 28 MMOL/L (20-31); CHLORIDE LEVEL 104 MMOL/L (98-107); CREATININE FOR GFR 0.65 MG/DL (0.55-1.30); GLOMERULAR FILTRATION RATE > 90.0 (>39); MAGNESIUM LEVEL 1.7 MG/DL (1.8-2.4); POTASSIUM SERUM 3.9 MMOL/L (3.5-5.1); SODIUM LEVEL 142 MMOL/L (136-145)
[2024-11-05] MEDS: MAG SULF 1GM/100ML (MAG RUN) 1 GM in IV 1 EA IV ONE (06:37)
[2024-11-05 07:15] VITALS: BP 121/58; TEMP 97.6; O2SAT 97
[2024-11-05] MEDS: MESALAMINE 1.2 GM PO SCH (08:09)
[2024-11-05] MEDS ORDERED: MAG SULF 1GM/100ML (MAG RUN) 1 GM in IV 1 EA IV ONE (11:00)
[2024-11-05 11:34] VITALS: BP 98/50; TEMP 97.8; O2SAT 98
[2024-11-05 20:00] VITALS: BP 117/54; TEMP 97.6; O2SAT 96
[2024-11-06 04:00] VITALS: BP 154/67; TEMP 98.6; O2SAT 96
[2024-11-06 05:14] LABS: PLATELET COUNT, AUTOMATED 237 10^3/uL (150-450)
[2024-11-06 05:55] LABS: CALCIUM LEVEL 8.9 MG/DL (8.3-10.6); CARBON DIOXIDE LEVEL 28 MMOL/L (20-31); CHLORIDE LEVEL 105 MMOL/L (98-107); CREATININE FOR GFR 0.65 MG/DL (0.55-1.30); GLOMERULAR FILTRATION RATE > 90.0 (>39); MAGNESIUM LEVEL 1.8 MG/DL (1.8-2.4); POTASSIUM SERUM 4.3 MMOL/L (3.5-5.1); SODIUM LEVEL 143 MMOL/L (136-145)
[2024-11-06 06:52] LABS: FREE T4 0.94 NG/DL (0.89-1.76)
[2024-11-06 08:00] VITALS: BP 145/65; TEMP 97.2; O2SAT 97
[2024-11-06 08:29] VITALS: BP 145/65
[2024-11-06 12:00] VITALS: BP 113/56; TEMP 97.6; O2SAT 98
[2024-11-06] MEDS ORDERED: ISOS1TAB36 PO (13:09)
== END 2024-11-06 15:04 | disposition home or self-care (01) | DRG 313 ==
LOC: M ED 11:22 → M ED INP 16:26 → M ICU 11-04 15:24
PROVIDERS: ADMIT Family Medicine; ATTEND Student in an Organized Health Care Education/Training Program
PROC: B246ZZZ Ultrasonography of Right and Left Heart (ICD-10-PCS; principal; 2024-11-05)
DX: R07.2 Precordial pain (principal); K51.90 Ulcerative colitis, unspecified, without complications; I51.81 Takotsubo syndrome; I24.89 Other forms of acute ischemic heart disease; F43.20 Adjustment disorder, unspecified; E03.9 Hypothyroidism, unspecified; E78.5 Hyperlipidemia, unspecified; E83.42 Hypomagnesemia; I35.0 Nonrheumatic aortic (valve) stenosis; I25.10 Atherosclerotic heart disease of native coronary artery without angina pectoris; Z66 Do not resuscitate; Z79.82 Long term (current) use of aspirin; Z79.890 Hormone replacement therapy; Z79.899 Other long term (current) drug therapy; Z87.891 Personal history of nicotine dependence